=== PATIENT | male | born 1970 | race African-American/Black ===

== ENCOUNTER 2018-04-11 11:16 | Emergency (ER) | payer SELFPAY ==
--- NOTE | 2018-04-11 13:08 | ER Document Report ---
ED Medical Screen (RME) - General Chief Complaint: Abdominal Pain Stated Complaint: ABDOMINAL PAIN Time Seen by Provider: 04/11/18 13:02 Notes: 47-year-old male patient visiting from [facility]. Has a history of chronic pancreatitis. It developed in the past from heavy alcohol use. At this time he states he drinks [employer] beer. He reports this morning he noticed some pain in the epigastric right upper quadrant region and drink some coffee. Coffee came back up and pain got worse. He still has his gallbladder. I have greeted and performed a rapid initial assessment of this patient. A comprehensive ED assessment and evaluation of the patient, analysis of test results and completion of the medical decision making process will be conducted by additional ED providers. TRAVEL OUTSIDE OF THE [place] IN LAST 30 DAYS: No - Related Data Allergies/Adverse Reactions: No Known Allergies Allergy (Unverified 04/11/18 11:18) Past Medical History - Social History Frequency of alcohol use: Rare - Past Medical History Cardiac Medical History: Reports: Hx Hypertension Renal/ Medical History: Denies: Hx Peritoneal Dialysis Past Surgical History: Reports: Hx Appendectomy Physical Exam - Vital signs Vitals: Temp Pulse Resp BP Pulse Ox 98.2 F 103 H 20 161/113 H 98 04/11/18 11:28 04/11/18 11:28 04/11/18 11:28 04/11/18 11:28 04/11/18 11:28 Course - Vital Signs Vital signs: Temp Pulse Resp BP Pulse Ox 98.2 F 103 H 20 161/113 H 98 04/11/18 11:28 04/11/18 11:28 04/11/18 11:28 04/11/18 11:28 04/11/18 11:28
[2018-04-11 13:41] LABS: ABSOLUTE BASOPHILS # (AUTO) 0.1 10^3/uL (0.0-0.2); ABSOLUTE LYMPHOCYTES (AUTO) 2.1 10^3/uL (0.5-4.7); ABSOLUTE MONOCYTES (AUTO) 0.5 10^3/uL (0.1-1.4); ABSOLUTE NEUT (AUTO) 2.6 10^3/uL (1.7-8.2); BASOPHILS % (AUTO) 1.4 % (0-2); EOSINOPHILS % (AUTO) 0.5 % (0-6); HEMATOCRIT 42.7 % (37.9-51.0); HEMOGLOBIN 14.7 g/dL (13.5-17.0); MEAN CORPUSCULAR HEMOGLOBIN 31.5 pg (27.0-33.4); MEAN CORPUSCULAR HGB CONC 34.5 g/dL (32.0-36.0); MEAN CORPUSCULAR VOLUME 92 fl (80-97); PLATELET COUNT 307 10^3/uL (150-450); RED BLOOD COUNT 4.67 10^6/uL (4.35-5.55); RED CELL DISTRIBUTION WIDTH 14.7 % (11.5-14.0); SEGMENTED NEUTROPHILS % (AUTO) 49.1 % (42-78); TOTAL CELLS COUNTED % (AUTO) 100 %; WHITE BLOOD COUNT 5.4 10^3/uL (4.0-10.5)
[2018-04-11 13:45] LABS: APPEARANCE,URINE CLEAR; BILIRUBIN,URINE NEGATIVE (NEGATIVE); COLOR,URINE YELLOW; GLUCOSE, URINE NEGATIVE (NEGATIVE); KETONES,URINE NEGATIVE (NEGATIVE); LEUKOCYTE ESTERASE,URINE NEGATIVE (NEGATIVE); NITRITE,URINE NEGATIVE (NEGATIVE); PROTEIN,URINE NEGATIVE (NEGATIVE); URINE SPECIFIC GRAVITY 1.005; UROBILINOGEN,URINE NEGATIVE mg/dL (<2.0)
[2018-04-11 14:00] LABS: ALANINE AMINOTRANSFERASE 30 U/L (21-72); ALBUMIN 4.4 g/dL (3.5-5.0); ALKALINE PHOSPHATASE 67 U/L (38-126); ANION GAP 9 (5-19); ASPARTATE AMINO TRANSFERASE 26 U/L (17-59); BILIRUBIN,DIRECT 0.1 mg/dL (0.0-0.4); BILIRUBIN,TOTAL 0.9 mg/dL (0.2-1.3); BLOOD UREA NITROGEN 2 mg/dL (7-20); CALCIUM 9.2 mg/dL (8.4-10.2); CARBON DIOXIDE 27 mmol/L (22-30); CHLORIDE 93 mmol/L (98-107); CREATINE KINASE 67 U/L (55-170); GLUCOSE 84 mg/dL (75-110); LIPASE 632.5 U/L (23-300); POTASSIUM 4.3 mmol/L (3.6-5.0); SODIUM 129.2 mmol/L (137-145); TOTAL PROTEIN 6.8 g/dL (6.3-8.2)
[2018-04-11] MEDS ORDERED: MORPHINE SULFATE 10 MG/ML INJ IV ONE ×2 (15:33→18:21)
[2018-04-11] MEDS ORDERED: ONDANSETRON HCL INJ/PF 4 MG/2 ML SDV IV ONE (15:33)
--- NOTE | 2018-04-11 15:39 | ER Document Report ---
Addendum entered and electronically signed by IVÁN DUGGAN PA 04/12/18 21:03: Discharge - Discharge Clinical Impression: Pancreatic cyst Acute pancreatitis Qualifiers: Pancreatitis type: unspecified pancreatitis type Acute pancreatitis com plication: no infection or necrosis Qualified Code(s): K85.90 - Acute pancreatitis without necrosis or infection, unspecified Vomiting Qualifiers: Vomiting type: unspecified Vomiting Intractability: non-intractable Nausea presence: with nausea Qualified Code(s): R11.2 - Nausea with vomiting, unspecified Cholelithiasis Qualifiers: Cholelithiasis location: gallbladder Cholecystitis presence: without cholecystitis Biliary obstruction: without biliary obstruction Qualified Code(s): K80.20 - Calculus of gallbladder without cholecystitis without obstruction Disposition: AGAINST MEDICAL ADVICE Additional Instructions: Your workup shows an inflamed pancreas acutely on top of your chronic pancreatitis, multiple cysts with possible cancer, and gallstones. It is not entirely excluded that you have a stone that is passing which could make you very sick in addition to this. You are signing out AGAINST MEDICAL ADVICE at this time, there is a chance that you could become very ill or even . I recommend that you return or seek medical treatment nearby immediately. Addendum entered and electronically signed by KAIA BHANDARI PA-C 04/12/18 10:59: Discharge - Discharge Clinical Impression: Pancreatic cyst Acute pancreatitis Qualifiers: Pancreatitis type: unspecified pancreatitis type Acute pancreatitis complication: no infection or necrosis Qualified Code(s): K85.90 - Acute pancreatitis without necrosis or infection, unspecified Vomiting Qualifiers: Vomiting type: unspecified Vomiting Intractability: non-intractable Nausea presence: with nausea Qualified Code(s): R11.2 - Nausea with vomiting, unspecified Cholelithiasis Qualifiers: Cholelithiasis location: gallbladder Cholecystitis presence: without cholecystitis Biliary obstruction: without biliary obstruction Qualified Code(s): K80.20 - Calculus of gallbladder without cholecystitis without obstruction Disposition: AGAINST MEDICAL ADVICE Additional Instructions: Your workup shows an inflamed pancreas acutely on top of your chronic pancreatitis, multiple cysts with possible cancer, and gallstones. It is not entirely excluded that you have a stone that is passing which could make you very sick in addition to this. You are signing out AGAINST MEDICAL ADVICE at this time, there is a chance that you could become very ill or even . I recommend that you return or seek medical treatment nearby immediately. Original Note: ED General - General TRAVEL OUTSIDE OF THE [place] IN LAST 30 DAYS: No <KAIA BHANDARI - Last Filed: 04/11/18 19:08> <IVÁN DUGGAN - Last Filed: 04/11/18 21:15> - General Chief Complaint: Abdominal Pain Stated Complaint: ABDOMINAL PAIN Time Seen by Provider: 04/11/18 13:02 - HPI Notes: Patient is a 47-year-old male with a history of hypertension and recurrent chronic pancreatitis who presents to the emergency department complaining of epigastric and right upper quadrant abdominal pain which is consistent with pr evious pancreatitis flare ups. His pain is currently not radiating, but at its worst will radiate to his back. Patient states that he is doing workup here for a couple weeks from [place] and started having pain last evening. Patient states that he tried to do a liquid diet this morning, but had nausea and vomiting. Patient states that he had previous alcohol abuse after his dad which is what caused his chronic pancreatitis. Patient states that he drinks "nonalcoholic" beer at this time, but in reality still contains 0.5% or less of alcohol in it. Patient states he had a few drinks of those last evening. He is still urinating normally and having normal bowel movements. Denies drug allergies. No other concerns or complaints. Surgical history of appendectomy. Denies any headache, fever, neck pain, URI, sore throat, chest pain, palpitations, syncope, cough, shortness of breath, wheeze, dyspnea, diarrhea, urinary retention, dysuria, hematuria, loss of control of bowel or bladder, numbness/tingling, saddle anesthesia, muscle paralysis/weakness, or rash. (KAIA BHANDARI) - Related Data Allergies/Adverse Reactions: No Known Allergies Allergy (Unverified 04/11/18 11:18) Past Medical History - Social History Smoking Status: Current Every Day Smoker Frequency of alcohol use: Rare Family History: Reviewed & Not Pertinent Patient has suicidal ideation: No Patient has homicidal ideation: No - Past Medical History Cardiac Medical History: Reports: Hx Hypertension Renal/ Medical History: Denies: Hx Peritoneal Dialysis Past Surgical History: Reports: Hx Appendectomy <KAIA BHANDARI - Last Filed: 04/11/18 19:08> Review of Systems - Review of Systems -: Yes All other systems reviewed and negative <KAIA BHANDARI - Last Filed: 04/11/18 19:08> Physical Exam <ELISABETKAIA - Last Filed: 04/11/18 19:08> - Vital signs Vitals: Temp Pulse Resp BP Pulse Ox 98.2 F 103 H 20 161/113 H 98 04/11/18 11:28 04/11/18 11:28 04/11/18 11:28 04/11/18 11:28 04/11/18 11:28 - Notes Notes: PHYSICAL EXAMINATION: GENERAL: Well-appearing, well-nourished and in no acute distress. A&Ox4. Answers questions appropriately. HEAD: Atraumatic, normocephalic. EYES: Pupils equal round and reactive to light, extraocular movements intact, sclera anicteric, conjunctiva are normal. ENT: Nares patent and without discharge. oropharynx clear without exudates. No tonsilar hypertrophy or erythema. Moist mucous membranes. NECK: Normal range of motion, supple without lymphadenopathy LUNGS: Breath sounds clear to auscultation bilaterally and equal. No wheezes rales or rhonchi. HEART: Regular rate and rhythm without murmurs, rubs, gallops. ABDOMEN: Soft, nondistended abdomen. No guarding, no rebound. No masses appreciated. Normal bowel sounds present. No CVA tenderness bilaterally. + reproducible tenderness primarily to his epigastrum. Mild RUQ tenderness. Musculoskeletal: FROM to passive/active. Strength 5+/5. Extremities: No cyanosis, clubbing, or edema b/l. Peripheral pulses 2+. Capillary refill less than 3 seconds. NEUROLOGICAL: Cranial nerves grossly intact. Normal speech, normal gait. PSYCH: Normal mood, normal affect. SKIN: Warm, Dry, normal turgor, no rashes or lesions noted. (KAIA BHANDARI) Course - Laboratory Result Diagrams: 04/11/18 13:20 04/11/18 13:20 <KAIA BHANDARI - Last Filed: 04/11/18 19:08> - Laboratory Result Diagrams: 04/11/18 13:20 04/11/18 19:37 <IVÁN DUGGAN - Last Filed: 04/11/18 21:15> - Re-evaluation Re-evalutation: 04/11/18 15:[address] Vaughan, radiology, who would like 1 bottle of PO contrast with IV to further evaluate. 04/11/18 18:42 Patient is an afebrile, well-hydrated, 47-year-old male who presents the emergency department with acute on chronic pancreatitis, cholelithiasis, and possible concern for choledocholithiasis. Vitals are acceptable without significant tachycardia, tachypnea, or hypoxia. Patient does have epigastric and right upper quadrant tenderness. He is nontoxic-appearing. CBC, urinalysis, CMP unremarkable. Lipase is elevated for a chronic pancreatitis patient. I did review Dr. Juan Mccullough and we will be obtaining a right upper quadrant ultrasound to further evaluate. His LFTs are otherwise unremarkable. Pending the ultrasound report, patient may need consult with general surgery and possible transfer verses discharge versus admission if he needs ERCP. If he does not need ERCP, patient should be a viable candidate for admission for acute pancreatitis. I reviewed this general plan with the patient who is in agreement. 04/11/18 19:05 Transfer of care at bedside to Iván Bertrand PA-C. (KAIA BHANDARI) 04/11/18 21:10 Ultrasound showing common bile duct widening without definite stone, no specific new findings noted. CAT scan showing multiple cysts with possible cystic neoplasm component, there is inflammation acutely in addition to chronic panc reatitis. On my reevaluation patient is having pain again and does not feel he can tolerate p.o. Patient will require admission or transfer. I discussed with patient, he states he remembers having a single cyst in the past which was biopsied years ago and found to not be cancer. Unfortunately he did not have multiple cysts previously. Because of newly developed cystic component with acute on chronic pancreatitis patient will require transfer. I discussed with Dr. Isabel. Patient called me to the bedside. He states that he understands that he needs to be admitted and he needs treatment, however he states that he needs to leave temporarily with his family member and then he will either come back or he will go to [place]. I explained the patient could become extremely ill with ei ther worsening symptoms from pancreatitis, developing infection, and he could become septic and . Patient states that he understands this, he will take the risk, he states that he will go with the family member and then immediately seek medical treatment. I again advised against this. Patient persistent. Patient is calm, clear, concise, appears to be completely capable of making his own decisions. Patient again states he wants to sign out AGAINST MEDICAL ADVICE and follow this plan of action. He was discharged AGAINST MEDICAL ADVICE. (IVÁN DUGGAN) - Vital Signs Vital signs: Temp Pulse Resp BP Pulse Ox 98.7 F 69 16 150/116 H 98 04/11/18 20:04 04/11/18 20:04 04/11/18 20:04 04/11/18 20:04 04/11/18 20:04 - Laboratory Laboratory results interpreted by me: 04/11/18 04/11/18 04/11/18 13:20 13:20 13:20 RDW 14.7 H Sodium 129.2 L Potassium Chloride 93 L Anion Gap BUN 2 L Creatinine 0.47 L Glucose Calcium Total Protein Albumin Lipase 632.5 H Urine Blood SMALL H 04/11/18 19:37 RDW Sodium 131.3 L Potassium 3.3 L D Chloride Anion Gap 2 L BUN < 2 L Creatinine 0.39 L Glucose 70 L Calcium 6.5 L* Total Protein 4.7 L Albumin 2.6 L Lipase 560.3 H Urine Blood Discharge <KAIA BHANDARI - Last Filed: 04/11/18 19:08> <IVÁN DUGGAN - Last Filed: 04/11/18 21:15> - Discharge Clinical Impression: Pancreatic cyst Acute pancreatitis Qualifiers: Pancreatitis type: unspecified pancreatitis type Acute pancreatitis complication: no infection or necrosis Qualified Code(s): K85.90 - Acute pancreatitis without necrosis or infection, unspecified Vomiting Qualifiers: Vomiting type: unspecified Vomiting Intractability: non-intractable Nausea presence: with nausea Qualified Code(s): R11.2 - Nausea with vomiting, unspecified Cholelithiasis Qualifiers: Cholelithiasis location: gallbladder Cholecystitis presence: without cholecystitis Biliary obstruction: without biliary obstruction Qualified Code(s): K80.20 - Calculus of gallbladder without cholecystitis without obstruction Disposition: AGAINST MEDICAL ADVICE Additional Instructions: Your workup shows an inflamed pancreas acutely on top of your chronic pancreatitis, multiple cysts with possible cancer, and gallstones. It is not entirely excluded that you have a stone that is passing which could make you very sick in addition to this. You are signing out AGAINST MEDICAL ADVICE at this time, there is a chance that you could become very ill or even . I recommend that you return or seek medical treatment nearby immediately.
[2018-04-11] MEDS: NORMAL SALINE 1000 ML 1,000 ML IV PRN ×2 (15:53→18:58)
--- NOTE | 2018-04-11 18:17 | RADIOLOGY REPORT (SQ) ---
EXAM DESCRIPTION: CT ABD/PELVIS WITH IV ORAL COMPLETED DATE/TIME: 04/11/2018 5:52 pm REASON FOR STUDY: n/v, abd pain COMPARISON: None. TECHNIQUE: CT scan of the abdomen and pelvis performed using helical scanning technique with dynamic intravenous contrast injection and oral contrast. Images reviewed with lung, soft tissue, and bone w indows. Reconstructed coronal and sagittal MPR images reviewed. Delayed images for evaluation of the urinary system also acquired. All images stored on PACS. All CT scanners at this facility use dose modulation, iterative reconstruction, and/or weight based d osing when appropriate to reduce radiation dose to as low as reasonably achievable (ALARA). [facility]: Dose Right [facility]: CareDose [facility]: Dose Right [facility]: Teradose 4D [facility]: Paxera CONTRAST TYPE AND DOSE: contrast/concentration: Isovue 350.00 mg/ml; Total Contrast Delivered: 88.0 ml; Total Saline Delivered: 70.0 ml RENAL FUNCTION: Creatinine 0.47 RADIATION DOSE: CT Rad equipment meets quality standard of care and radiation dose reduction techniq ues were employed. CTDIvol: 5.6 - 7.7 mGy. DLP: 699 mGy-cm.. LIMITATIONS: None. FINDINGS: LOWER CHEST: No consolidation or pleural effusion. LIVER: Normal size. No masses. Mildly dilated intrahepatic ducts. SPLEEN: Normal size. No focal lesions. PANCREAS: Multiple calcifications are seen at the pancreas, most consistent with chronic pancreatitis . The main pancreatic duct is dilated to 7 mm. Multiple cystic lesions are seen at the pancreatic h ead, the largest measuring 6.6 x 5.3 cm. Soft tissue stranding is noted in the region of the pancrea tic head and proximal duodenum. GALLBLADDER: There is cholelithiasis. Small hyperdensities are seen within the region of the common bile duct measuring up to 1 cm. ADRENAL GLANDS: There is a 2.0 cm indeterminate nodule at the right adrenal gland. No significant no dularity at the left adrenal gland. RIGHT KIDNEY AND URETER: No solid masses. No significant calcifications. No hydronephrosis or hyd roureter. There is a duplicated collecting system. LEFT KIDNEY AND URETER: No solid masses. No significant calcifications. No hydronephrosis or hydr oureter. AORTA AND VESSELS: No abdominal aortic aneurysm. RETROPERITONEUM: No retroperitoneal adenopathy, hemorrhage or masses. BOWEL AND PERITONEAL CAVITY: No dilated bowel loops or inflammatory changes. No free fluid or free ai r. APPENDIX: Surgically absent. PELVIS: No mass. No free fluid. The urinary bladder is partially distended. ABDOMINAL WALL: No hernias. BONES: Degenerative disc disease with vacuum disc phenomenon at L4-L5 and L5-S1. IMPRESSION: 1. Chronic pancreatitis. Dilated main pancreatic duct. Multiple cystic lesions at th e pancreatic head, the largest measuring 6.6 x 5.3 cm, may represent pancreatic pseudocysts or cystic neoplasm. Soft tissue stranding in the region of the pancreatic head and proximal duodenum, may be secondary to acute pancreatitis or duodenitis. Please correlate with lipase level. 2. Cholelithiasis. Mild intrahepatic biliary ductal dilation. Small hyperdensities within the regio n of the common bile duct measuring up to 1 cm, raising concern for choledocholithiasis. 3. 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 4. 2.0 cm indeterminate nodule of the right adrenal gland. TECHNICAL DOCUMENTATION: JOB ID: [id number] Quality ID # [id number]: Final reports with documentation of one or more dose reduction techniques (e.g., Au tomated exposure control, adjustment of the mA and/or kV according to patient size, use of iterative reconstruction technique) 2010 [employer]- All Rights Reserved Reading location - IP/workstation name: [email or web address]
--- NOTE | 2018-04-11 19:26 | RADIOLOGY REPORT (SQ) ---
EXAM DESCRIPTION: U/S ABDOMEN LIMITED W/O DOP COMPLETED DATE/TIME: 04/11/2018 7:13 pm REASON FOR STUDY: RUQ/epigastric, see CT report COMPARISON: CT scan same date TECHNIQUE: Dynamic and static grayscale images acquired of the abdomen and recorded on PACS. Yonatan spicer selected color Doppler and spectral images recorded. LIMITATIONS: None. FINDINGS: PANCREAS: Large cystic area in the head of the pancreas similar to that on CT. Measures u p to 7 cm. Pancreas otherwise not well seen. LIVER: No masses. Echotexture normal. LIVER VASCULATURE: Normal directional flow of the main portal vein and hepatic veins. GALLBLADDER: Gallstones. Sludge. No thickening of the gallbladder wall. ULTRASOUND-DETECTED GREENE'S SIGN: Negative. INTRAHEPATIC DUCTS AND COMMON DUCT: Dilated common bile duct. Similar to CT. No identified filling defect in the common duct but poorly visualized. INFERIOR VENA CAVA: Normal flow. AORTA: No visualized aneurysm. RIGHT KIDNEY: Normal size. Normal echogenicity. No solid or suspicious masses. No hydronephrosis. No calcifications. PERITONEAL AND RIGHT PLEURAL SPACE: No ascites or effusions. OTHER: No other significant findings. IMPRESSION: Large cyst head of the pancreas similar to CT. Measures up 7 cm. Pancreas otherwise no t well seen. Gallstones. Sludge. Dilated common bile duct. No definitive stone in the common duct. COMMENT: To evaluate the common bile duct, consider MRCP TECHNICAL DOCUMENTATION: JOB ID: [id number] [employer]- All Rights Reserved Reading location - IP/workstation name: [email or web address]
[2018-04-11 20:05] VITALS: BP 150/116
[2018-04-11 20:09] LABS: GLUCOSE 70 mg/dL (75-110)
[2018-04-11 20:10] LABS: ALANINE AMINOTRANSFERASE 23 U/L (21-72); ALBUMIN 2.6 g/dL (3.5-5.0); ALKALINE PHOSPHATASE 55 U/L (38-126); ASPARTATE AMINO TRANSFERASE 22 U/L (17-59); BILIRUBIN,DIRECT 0.1 mg/dL (0.0-0.4); BILIRUBIN,TOTAL 0.7 mg/dL (0.2-1.3); LIPASE 560.3 U/L (23-300); TOTAL PROTEIN 4.7 g/dL (6.3-8.2)
[2018-04-11 20:15] LABS: CARBON DIOXIDE 22 mmol/L (22-30); CHLORIDE 107 mmol/L (98-107); SODIUM 131.3 mmol/L (137-145)
[2018-04-11 20:17] LABS: BLOOD UREA NITROGEN < 2 mg/dL (7-20)
[2018-04-11 20:19] LABS: CALCIUM 6.5 mg/dL (8.4-10.2)
[2018-04-11 20:36] LABS: POTASSIUM 3.3 mmol/L (3.6-5.0)
[2018-04-11 20:47] LABS: ANION GAP 2 (5-19)
== END 2018-04-11 21:40 | disposition left against medical advice (07) ==
LOC: ER 11:16
DX: K86.2 Cyst of pancreas (principal); K85.90 Acute pancreatitis without necrosis or infection, unspecified; K86.0 Alcohol-induced chronic pancreatitis; K80.20 Calculus of gallbladder without cholecystitis without obstruction; R11.2 Nausea with vomiting, unspecified; F17.200 Nicotine dependence, unspecified, uncomplicated; I10 Essential (primary) hypertension; R10.13 Epigastric pain; R10.11 Right upper quadrant pain; Z53.20 Procedure and treatment not carried out because of patient's decision for unspecified reasons
CPT/HCPCS: 96376; 99284; 96361; 96374; 96375; 36415; 82550; 83690; 85025; 80053; 81001; 76705; 74177; J2270; J2405; J7030